=== PATIENT | male | born 1950 | race Caucasian/White ===

== ENCOUNTER → 2017-02-03 | Outpatient (CLI) | payer BC ==
[~2017-02-03] MED LIST: ALBUAER2 INH; ASPI81TA28 PO; FEXO1TAB46 PO; FLUT0.0529 NAE; IPRASOL4 INH; MOME100A INH; MOME200A INH; ZNTT/150 PO
[2017-02-03 09:52] LABS: BLOOD UREA NITROGEN 15 mg/dl (7-18); BUN/CREATININE RATIO 14.7 (10-20); CALCIUM 8.7 mg/dl (8.5-10.1); CARBON DIOXIDE 29 mmol/L (21-32); CHLORIDE 106 mmol/L (98-107); CHOLESTEROL 153 mg/dl (0-200); CHOLESTEROL/HDL RATIO 3.4; GLUCOSE 120 mg/dl (70-99); HDL CHOLESTEROL 45 mg/dl; LDL CHOLESTEROL CALCULATED 69 mg/dl; POTASSIUM 4.1 mmol/L (3.5-5.1); SODIUM 142 mmol/L (136-145); TRIGLYCERIDES 195 mg/dl (0-150); VERY LOW DENSITY LIPOPROT CALC 39 mg/dl
[2017-02-03 09:54] LABS: ESTIMATED AVERAGE GLUCOSE 131 mg/dl; HA1C FLAG Normal (Normal)
== END | disposition home or self-care (01) ==
LOC: C.LAB1850 07:44
PROVIDERS: ATTEND Family Medicine
DX: R73.9 Hyperglycemia, unspecified (principal); E78.1 Pure hyperglyceridemia

== ENCOUNTER 2017-12-28 15:11 | Emergency (ER) | payer OTHER ==
[~2017-12-28] VITALS: Ht 188 cm; Wt 121.7 kg
[~2017-12-28 15:11] MED LIST changes: -MOME100A INH; +RANI150T85 PO; -ZNTT/150 PO
[2017-12-28 15:31] VITALS: TEMP 37; Ht 188 cm; Wt 121.7 kg
[2017-12-28] MEDS ORDERED: LORAZEPAM 1 MG TAB SL STA (15:36)
[2017-12-28] MEDS ORDERED: FLUT0.15 NAE (15:59)
[2017-12-28] MEDS ORDERED: VNTHFA/IN INH (15:59)
--- NOTE | 2017-12-28 16:01 | EMERGENCY ROOM VISIT NOTE ---
History Report prepared by Diane: Vinod Duarte Under the Supervision of: Dr. Odin Wiggins M.D. First contact with patient: 15:23 Chief Complaint: MENTAL HEALTH EVALUATION Stated Complaint: MAJOR DEPRESSIVE EPISODE, PANIC ATTACK History of Present Illness The patient is a 67 year old male who presents to the Emergency Room with complaints of severe anxiety and guilt regarding the recent of his service dog. The patient reports that he had to put down his long time service dog yesterday and has been feeling overwhelming guilt ever since. He is scared that his symptoms will worsen if his leaves him alone when she goes to work. The patient notes that he feels like he killed his dog, however, his dog actually needed to be put-down secondary to kidney failure and other defects. The patient notes that he has been having visions of his dog since it was put down. He denies any suicidal or homicidal thoughts, and denies having feelings similar to this episode in the past; even with the loss of a child. He has no personal history of PTSD and the service dog's live with the patient and his due to her history of PTSD. The patient has a history of A-Fib, but is not currently taking any blood thinners. He also has a history of asthma and was recently diagnosed with bronchitis. Source of History: patient Onset: Yesterday Position: other (Psychiatric ) Symptom Intensity: severe Quality: other (Anxiety/Guilt - Mental Healt Evaluation) Modifying Factors (Worsening): other (Being left alone.) Review of Systems See HPI for pertinent positives & negatives. A total of 10 systems reviewed and were otherwise negative. Past Medical & Surgical Medical Problems: (1) Asthma (2) Bronchitis (3) Emphysema Surgical Problems: (1) Hx of hernia repair (2) Hx of knee surgery Family History FHx: cancer FHx: diabetes FHx: heart disease FHx: hypertension FHx: lung disease Social History Smoking Status: Former Smoker Marital Status: Occupation Status: employed Current/Historical Medications Scheduled Fluticasone Propionate (Nasal) (Flonase Allergy Relief), 1 SPRAY JOSHUA BID Mometasone Furoate-Formoterol (Dulera 200/5 Mcg), 2 PUFFS INH BID Scheduled PRN Albuterol Hfa (Ventolin Hfa), 2-4 PUFFS INH Q6H PRN for Shortness of Breath Fexofenadine Hcl (Laly), 180 MG PO DAILY PRN for ALLERGIES Ipratropium-Albuterol (Duoneb), 1 TREATMENT INH QID PRN for SOB/Wheezing Lorazepam (Ativan), 1 MG PO Q6H PRN for Anxiety/Agitation Ranitidine (Zantac), 150 MG PO HS PRN for Indigestion Allergies Coded Allergies: Adhesives (Verified Allergy, Severe, RASH, PRURITIS, 08/01/17) Doxycycline (Verified Allergy, Intermediate, rash, 08/01/17) Physical Exam Vital Signs Date Time Temp Pulse Resp B/P (MAP) Pulse Ox O2 Delivery O2 Flow Rate FiO2 12/28/17 17:40 82 18 134/88 94 12/28/17 16:28 18 148/89 93 Room Air 12/28/17 16:05 91 12/28/17 15:36 Room Air 12/28/17 15:36 Room Air 12/28/17 15:31 37.0 97 18 172/61 97 Room Air Physical Exam GENERAL: Patient is a healthy-appearing well-nourished male HEAD: Normocephalic atraumatic EYES: Ocular movements intact pupils equal and react to light OROPHARYNX mucous membranes are moist no exudates present no erythema or edema present NECK: Supple no nuchal rigidity CHEST: Good equal expansion LUNGS: Clear and equal to auscultation CARDIAC: Normal S1 and S2 ABDOMEN: Soft nontender no guarding BACK: No CVA tenderness EXTREMITIES: No pain upon palpation normal muscle strength in all groups no clubbing cyanosis or edema NEURO: Patient is following commands and answering questions appropriately. Alert and oriented x3 Cranial Nerves 2-12 grossly intact Medical Decision & Procedures ER Provider Diagnostic Interpretation: Radiology results as stated below per my review and radiologist interpretation: CHEST ONE VIEW PORTABLE CLINICAL HISTORY: CHEST PAIN dyspnea COMPARISON STUDY: 11/04/2016 FINDINGS: The bones soft tissues and hemidiaphragms are normal. The cardiomediastinal silhouette is normal. The lungs are clear. The pulmonary vasculature is normal. IMPRESSION: Negative chest. The above report was generated using voice recognition software. It may contain grammatical, syntax or spelling errors. Electronically signed by: Horacio Munoz M.D. 12/28/2017 4:12 PM Dictated Date/Time: 12/28/2017 4:12 PM Laboratory Results 12/28/17 15:50 Red Blood Count 4.71, Mean Corpuscular Volume 89.8, Mean Corpuscular Hemoglobin 30.1, Mean Corpuscular Hemoglobin Concent 33.6, Mean Platelet Volume 9.6, Neutrophils (%) (Auto) 85.5, Lymphocytes (%) (Auto) 9.8, Monocytes (%) (Auto) 3.3, Eosinophils (%) (Auto) 0.7, Basophils (%) (Auto) 0.2, Neutrophils # (Auto) 8.63, Lymphocytes # (Auto) 0.99, Monocytes # (Auto) 0.33, Eosinophils # (Auto) 0.07, Basophils # (Auto) 0.02 12/28/17 15:50 Test 12/28/17 15:50 White Blood Count 10.09 K/uL (4.8-10.8) Red Blood Count 4.71 M/uL (4.7-6.1) Hemoglobin 14.2 g/dL (14.0-18.0) Hematocrit 42.3 % (42-52) Mean Corpuscular Volume 89.8 fL (80-100) Mean Corpuscular Hemoglobin 30.1 pg (25-34) Mean Corpuscular Hemoglobin Concent 33.6 g/dl (32-36) Platelet Count 241 K/uL (130-400) Mean Platelet Volume 9.6 fL (7.4-10.4) Neutrophils (%) (Auto) 85.5 % Lymphocytes (%) (Auto) 9.8 % Monocytes (%) (Auto) 3.3 % Eosinophils (%) (Auto) 0.7 % Basophils (%) (Auto) 0.2 % Neutrophils # (Auto) 8.63 K/uL (1.4-6.5) Lymphocytes # (Auto) 0.99 K/uL (1.2-3.4) Monocytes # (Auto) 0.33 K/uL (0.11-0.59) Eosinophils # (Auto) 0.07 K/uL (0-0.5) Basophils # (Auto) 0.02 K/uL (0-0.2) RDW Standard Deviation 45.8 fL (36.4-46.3) RDW Coefficient of Variation 13.9 % (11.5-14.5) Immature Granulocyte % (Auto) 0.5 % Immature Granulocyte # (Auto) 0.05 K/uL (0.00-0.02) Prothrombin Time 10.1 SECONDS (9.0-12.0) Prothromb Time International Ratio 1.0 (0.9-1.1) Anion Gap 8.0 mmol/L (3-11) Est Creatinine Clear Calc Drug Dose 97.2 ml/min Estimated GFR () 85.9 Estimated GFR (Non- 74.1 BUN/Creatinine Ratio 15.2 (10-20) Calcium Level 8.7 mg/dl (8.5-10.1) Total Bilirubin 0.4 mg/dl (0.2-1) Direct Bilirubin 0.1 mg/dl (0-0.2) Aspartate Amino Transf (AST/SGOT) 28 U/L (15-37) Alanine Aminotransferase (ALT/SGPT) 24 U/L (12-78) Alkaline Phosphatase 83 U/L (45-117) Total Creatine Kinase 596 U/L (39-308) Creatine Kinase MB 7.1 ng/ml (0.5-3.6) Creatine Kinase MB Ratio 1.2 (0-3.0) Troponin I 0.028 ng/ml (0-0.045) Total Protein 7.6 gm/dl (6.4-8.2) Albumin 3.4 gm/dl (3.4-5.0) Lipase 125 U/L (73-393) Labs reviewed by ED physician. Medications Administered Medications (Trade) Dose Ordered Sig/Roberto Route Start Time Stop Time Status Last Admin Dose Admin Lorazepam (Ativan Tab) 1 mg NOW STAT SL 12/28/17 15:36 12/28/17 15:37 DC 12/28/17 15:47 1 MG Lorazepam (Ativan 1MG Home Pack) 1 homepack UD ONCE PO 12/28/17 17:30 12/28/17 17:31 DC 12/28/17 17:40 1 HOMEPACK ECG Indication: palpitations, other Rate (beats per minute): 93 Rhythm: normal sinus Findings: no acute ischemic change, no ectopy, other (Normal sinus rhythym, no st elevation or depression. Normal axis. Normal interval. ) Change: Patient's electrocardiogram per my interpretation. ED Course 1529: Past medical records reviewed. The patient was evaluated in room A8. A complete history and physical examination was performed. 1536: Ordered Lorazepam 1 mg SL. 173: Ordered Lorazepam 1 homepack PO. 1735: Upon reexamination the patient is resting in bed. I discussed results and treatment plan with the patient. He verbalizes agreement and understanding. The patient is ready for discharge. Medical Decision Differential diagnosis: Etiologies such as metabolic, infection, hypoglycemia, electrolyte abnormalities , cardiac sources, intracerebral event, toxicologic, neurologic, as well as others were entertained. This is a 67-year-old male who presents to the emergency department incredibly emotional over the of his daughter. The patient denies being suicidal or homicidal. He is well in appearance has a normal sinus rhythm on his EKG. He does not have an elevation in his white blood count cell count as a normal renal profile. For this reason the patient was medically cleared by me. As the patient is not suicidal or homicidal feel can be safely discharged home. He was given Ativan here in the emergency department. Repeat examination revealed improvement in the patient's symptoms. The patient is going to follow- up with his 's therapist and was in agreement with the treatment plan to return if he develops any suicidal or homicidal thoughts. Medication Reconcilliation Current Medication List: was personally reviewed by me Blood Pressure Screening Patient's blood pressure: Elevated blood pressure Blood pressure disposition: Elevated BP felt to be situational Impression Primary Impression: Acute anxiety Scribe Attestation The scribe's documentation has been prepared under my direction and personally reviewed by me in its entirety. I confirm that the note above accurately reflects all work, treatment, procedures, and medical decision making performed by me. Departure Information Dispostion Home / Self-Care Prescriptions Lorazepam (ATIVAN) 1 Mg Tab 1 MG PO Q6H Y for Anxiety/Agitation, #6 TAB Prov: Odin Wiggins MD 12/28/17 Referrals Susan Rivera MD (PCP) Forms HOME CARE DOCUMENTATION FORM, IMPORTANT VISIT INFORMATION Patient Instructions My [facility] Additional Instructions Follow up with Outpatient services You have been examined and treated today on an emergency basis only. This is not a substitute for, or an effort to provide, complete comprehensive medical care. It is impossible to recognize and treat all injuries or illnesses in a single emergency department visit. It is therefore important that you follow up closely with Dr Rivera. Call as soon as possible for an appointment. Thank you for your time and consideration. I look forward to speaking with you again soon. Please don't hesitate to call us if you have any questions.
[2017-12-28 16:04] LABS: BASO % 0.2 %; BASO ABS # 0.02 K/uL (0-0.2); EOS % 0.7 %; EOS ABS # 0.07 K/uL (0-0.5); HEMATOCRIT 42.3 % (42-52); HEMOGLOBIN 14.2 g/dL (14.0-18.0); IG# 0.05 K/uL (0.00-0.02); LYMPH % 9.8 %; LYMPH ABS # 0.99 K/uL (1.2-3.4); MEAN CELL VOLUME 89.8 fL (80-100); MEAN CORPUSCULAR HEMOGLOBIN 30.1 pg (25-34); MEAN CORPUSCULAR HGB CONC 33.6 g/dl (32-36); MEAN PLATELET VOLUME 9.6 fL (7.4-10.4); MONO % 3.3 %; MONO ABS # 0.33 K/uL (0.11-0.59); NEUT % 85.5 %; NEUT ABS # 8.63 K/uL (1.4-6.5); PLATELET COUNT 241 K/uL (130-400); RED CELL DISTRIBUTION WIDTH CV 13.9 % (11.5-14.5); RED CELL DISTRIBUTION WIDTH SD 45.8 fL (36.4-46.3); WHITE BLOOD COUNT 10.09 K/uL (4.8-10.8)
--- NOTE | 2017-12-28 16:13 | DIAGNOSTIC IMAGING REPORT ---
CHEST ONE VIEW PORTABLE CLINICAL HISTORY: CHEST PAIN dyspnea COMPARISON STUDY: 11/04/2016 FINDINGS: The bones soft tissues and hemidiaphragms are normal. The cardiomediastinal silhouette is normal. The lungs are clear. The pulmonary vasculature is normal. IMPRESSION: Negative chest. The above report was generated using voice recognition software. It may contain grammatical, syntax or spelling errors. Electronically signed by: Horacio Munoz M.D. 12/28/2017 4:12 PM Dictated Date/Time: 12/28/2017 4:12 PM
[2017-12-28 16:29] LABS: ALBUMIN 3.4 gm/dl (3.4-5.0); CALCIUM 8.7 mg/dl (8.5-10.1); CKMB 7.1 ng/ml (0.5-3.6); CREATININE 1.05 mg/dl (0.60-1.40); POTASSIUM 4.2 mmol/L (3.5-5.1); TOTAL PROTEIN 7.6 gm/dl (6.4-8.2)
[2017-12-28] MEDS ORDERED: ATV/1 PO (17:24)
[2017-12-28] MEDS ORDERED: ATIVAN 1MG HOMEPACK PO ONE (17:30)
[2017-12-28 17:40] VITALS: BP 134/88; PULSE 82; O2SAT 94
== END 2017-12-28 17:45 | disposition home or self-care (01) ==
LOC: C.EDB 15:13 → C.EDA 17:45
DX: F41.9 Anxiety disorder, unspecified (principal); I48.91 Unspecified atrial fibrillation; J45.909 Unspecified asthma, uncomplicated; J43.9 Emphysema, unspecified; Z87.891 Personal history of nicotine dependence; Z80.9 Family history of malignant neoplasm, unspecified; Z83.3 Family history of diabetes mellitus; Z82.49 Family history of ischemic heart disease and other diseases of the circulatory system; Z91.048 Other nonmedicinal substance allergy status; Z88.1 Allergy status to other antibiotic agents

== ENCOUNTER → 2018-06-06 | Outpatient (CLI) | payer OTHER ==
[~2018-06-06] MED LIST changes: -ALBUAER2 INH; -ASPI81TA28 PO; -FLUT0.0529 NAE; +FLUT0.15 NAE; +IPRA-64 INH; -IPRASOL4 INH; +VNTHFA/IN INH
[2018-06-06 10:50] LABS: ALT/SGPT 27 U/L (12-78); BLOOD UREA NITROGEN 26 mg/dl (7-18); CALCIUM 8.8 mg/dl (8.5-10.1); CARBON DIOXIDE 26 mmol/L (21-32); CHOLESTEROL 148 mg/dl (0-200); CREATININE 1.18 mg/dl (0.60-1.40); GLUCOSE 114 mg/dl (70-99); LDL CHOLESTEROL CALCULATED 71 mg/dl; POTASSIUM 4.5 mmol/L (3.5-5.1); SODIUM 141 mmol/L (136-145)
== END | disposition home or self-care (01) ==
LOC: C.LAB1850 08:03
PROVIDERS: ATTEND Family Medicine
DX: Z00.00 Encounter for general adult medical examination without abnormal findings (principal); Z12.5 Encounter for screening for malignant neoplasm of prostate; R73.9 Hyperglycemia, unspecified; E78.1 Pure hyperglyceridemia; I25.10 Atherosclerotic heart disease of native coronary artery without angina pectoris